=== PATIENT | female | born 2000 | race Hispanic/Latino ===

== ENCOUNTER 2021-08-18 02:04 | Emergency (ER) | payer MEDICAID ==
[2021-08-18 03:14] VITALS: BP 121/78
[2021-08-18] MEDS ORDERED: KETOROLAC 30 MG/1 ML INJ IM ONE (03:40)
--- NOTE | 2021-08-18 03:45 | Emergency Department Report ---
ED General Adult HPI - General Chief complaint: Anxiety Stated complaint: PANIC ATTACK Time Seen by Provider: 08/18/21 03:33 Source: EMS Mode of arrival: Stretcher Limitations: No Limitations - History of Present Illness Initial comments: Patient presents with possible seizure. She states that she remembers tingling all over. She does not really remember everything about the seizure. Patient states that she has a long history of seizures. Her neurologist is "trying to figure out what to do." She had an EEG done in December. She states that she saw her neurologist last in July. She does not know the result of her EEG. She does report that her neurologist was trying to figure out what to do about her migraines. Neurology has not started any antiepileptic medication. Nobody has mentioned any specific type of seizure. Nobody has mentioned any specific etiology for the seizures. She had previously been on Topamax for her migraine s. Her primary care thought that this was contributing to seizures and took her off of Topamax. Regardless, tonight there was no history of recent travel or trauma. There is no family present to discuss what was witnessed. EMS had brought the patient and as a "panic attack." - Related Data Previous Rx's Medication Instructions Recorded Last Taken Type hydrOXYzine HCL [Atarax] 25 mg PO Q6HR PRN #30 tablet 08/18/21 Unknown Rx Allergies Allergy/AdvReac Type Severity Reaction Status Date / Time No Known Allergies Allergy Verified 08/18/21 03:13 ED Review of Systems ROS: Stated complaint: PANIC ATTACK Other details as noted in HPI Comment: All other systems reviewed and negative Constitutional: denies: fever Eyes: denies: vision change ENT: denies: throat pain Respiratory: denies: cough Cardiovascular: denies: chest pain Endocrine: denies: unexplained weight loss Gastrointestinal: denies: abdominal pain Genitourinary: denies: dysuria Musculoskeletal: denies: back pain Skin: denies: rash Neurological: headache (Chronic), paresthesias (Associate with seizure) Hematological/Lymphatic: denies: easy bruising ED Past Medical Hx - Past Medical History Previous Medical History?: Yes Additional medical history: Seizure, migraines - Family History Family history: other (Negative for seizures) - Social History Substance Use Type: Other (Denies drug use) - Medications Home Medications: Home Medications Medication Instructions Recorded Confirmed Last Taken Type hydrOXYzine HCL [Atarax] 25 mg PO Q6HR PRN #30 tablet 08/18/21 Unknown Rx ED Physical Exam - General Limitations: No Limitations, Other (Pulse ox is noted normal patient not hypoxic.) General appearance: alert, in no apparent distress, other (Somnolent) - Head Head exam: Present: atraumatic, normocephalic, normal inspection - Eye Eye exam: Present: normal appearance, PERRL, EOMI. Absent: scleral icterus - ENT ENT exam: Present: normal exam, normal orophraynx, mucous membranes dry - Neck Neck exam: Present: normal inspection. Absent: meningismus - Respiratory Respiratory exam: Present: normal lung sounds bilaterally. Absent: respiratory distress - Cardiovascular Cardiovascular Exam: Present: regular rate, normal rhythm - GI/Abdominal GI/Abdominal exam: Present: soft. Absent: distended, tenderness - Extremities Exam Extremities exam: Present: normal capillary refill. Absent: pedal edema - Back Exam Back exam: Absent: CVA tenderness (R), CVA tenderness (L) - Neurological Exam Neurological exam: Present: alert, oriented X3, CN II-XII intact, normal gait, reflexes normal, other (Somnolent but arousable). Absent: motor sensory deficit - Psychiatric Psychiatric exam: Present: normal affect, normal mood - Skin Skin exam: Present: warm, dry ED Course Vital Signs 08/18/21 03:13 Temperature 98.4 F Pulse Rate 90 Respiratory 18 Rate Blood Pressure 121/78 [Left] O2 Sat by Pulse 100 Oximetry - Reevaluation(s) Reevaluation #1: 08/18/21 03:44 Labs were ordered. Old records reviewed. 08/18/21 05:10 Labs are pending. Lab called. Reevaluation #2: 08/18/21 05:20 Labs are noted. Patient was subsequently discharged. There is no evidence of metabolic derangement. ED Medical Decision Making - Lab Data Result diagrams: 08/18/21 Unknown - Medical Decision Making Patient presents with possible seizure. She is not treated despite having EEGs completed previously and being seen by neurology. Whether this represents nonepileptic activity is not known. This could also represent pseudoseizure. Regardless, patient does not require emergent treatment here. There is no evidence of metabolic derangement. She does not appear to be septic or toxic. She has no meningeal signs. She does not have any history of trauma that would suggest subdural or epidural hematomas. I do not believe imaging is necessary. She has no focal neurologic findings at this time. Critical Care Time: No Critical care attestation.: If time is entered above; I have spent that time in minutes in the direct care o f this critically ill patient, excluding procedure time. ED Disposition Clinical Impression: Seizure Disposition: HOME / SELF CARE / HOMELESS Is pt being admited?: No Condition: Stable Instructions: Seizure, Adult, [id number] Additional Instructions: Drink plenty of water. Return for problems. Avoid caffeine and other st imulants. Follow-up with your regular doctor and your neurologist to discuss findings and EEG. Prescriptions: hydrOXYzine HCL [Atarax] 25 mg PO Q6HR PRN #30 tablet PRN Reason: Anxiety Referrals: PRIMARY CAREMD [Referring] - 3-5 Days LUCY JORGE MD [Staff Physician] - 3-5 Days
[2021-08-18 04:53] LABS: Blood Urea Nitrogen 12 mg/dL (7-17); Calcium 9.5 mg/dL (8.4-10.2); Hemolysis Index 26
[2021-08-18 05:15] LABS: BUN/Creatinine Ratio 20
== END 2021-08-18 05:58 | disposition home or self-care (01) ==
LOC: ED 02:04
DX: R56.9 Unspecified convulsions (principal); G43.909 Migraine, unspecified, not intractable, without status migrainosus; Z79.899 Other long term (current) drug therapy
CPT/HCPCS: 36415; 80048; 96372; 99283; J1885